=== PATIENT | female | born 1970 | race Caucasian/White ===

== ENCOUNTER 2017-11-21 21:33 | Emergency (ER) | payer BC, OTHER ==
[~2017-11-21] VITALS: Ht 157.5 cm; Wt 81.2 kg
--- NOTE | ~2017-11-21 | EKG ---
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
[~2017-11-21 21:33] MED LIST: ALPRAZOLAM ER0.5 MG PO; LEXAPRO; NORCO 5-325 TA1 EACH PO; TRAMADOL 50 MG50 MG PO
[2017-11-21 22:04] LABS: ABSOLUTE NEUTROPHILS 6.6 thou/uL (1.4-8.2); BASOPHILS 0.7 % (0.0-2.0); EOSINOPHILS 0.8 % (0.0-3.0); HEMOGLOBIN 12.9 gm/dL (12.0-15.0); LYMPHOCYTES 18.2 % (24.0-44.0); MCHC 34.8 g/dL (28.0-37.0); MCV 88.8 fL (80.0-100.0); MONOCYTES 7.2 % (1.0-8.0); PLATELET COUNT 267 thou/uL (150-400); POLYS 73.1 % (36.0-66.0); RBC 4.16 mil/uL (4.20-5.00); RDW 14.7 % (10.5-14.5)
[2017-11-21 22:11] LABS: CALCIUM 10.3 mg/dL (8.5-10.1); CREATININE 0.7 mg/dL (0.6-1.0); POTASSIUM 3.3 mmol/L (3.5-5.1)
[2017-11-21 23:21] VITALS: BP 137/86
== END 2017-11-21 23:22 | disposition home or self-care (01) ==
LOC: ER 21:33
PROVIDERS: Emergency Medicine
DX: R55 Syncope and collapse (principal); M25.521 Pain in right elbow; Z88.1 Allergy status to other antibiotic agents; Z98.890 Other specified postprocedural states